=== PATIENT | female | born 1995 | race American Indian/Alaskan Native ===

== ENCOUNTER 2019-05-19 03:41 | Emergency (ER) | payer SELFPAY ==
[2019-05-19 03:49] VITALS: BP 128/82
--- NOTE | 2019-05-19 05:46 | XRay Report ---
PROCEDURE: XR HAND 3+V RT TECHNIQUE: 3 views right hand were obtained. HISTORY: slammed in car door COMPARISONS: None FINDINGS: There is no evidence of fracture or dislocation. There is dorsal soft tissue swelling overlying the m etacarpal phalangeal joints. The wrist joint is not show acute changes. IMPRESSION: Soft tissue swelling overlying the dorsal aspect of the metacarpophalangeal joints. No acute fracture .. This document is electronically signed by Erik Mooney MD., May 19 2019 05:44:14 AM ET
== END 2019-05-19 08:32 | disposition left against medical advice (07) ==
LOC: ED 03:41
DX: R22.31 Localized swelling, mass and lump, right upper limb (principal); Z53.21 Procedure and treatment not carried out due to patient leaving prior to being seen by health care provider